=== PATIENT | female | born 1945 | race Caucasian/White ===

== ENCOUNTER 2017-08-20 18:03 | Emergency (ER) | payer OTHER ==
[~2017-08-20] VITALS: Ht 162.6 cm; Wt 51.3 kg
[2017-08-20] MEDS ORDERED: HYDR1TAB94 PO (19:48)
[2017-08-20] MEDS ORDERED: IBUP400 PO (19:49)
== END 2017-08-20 20:45 | disposition home or self-care (01) ==
LOC: ER 18:03
DX: S32.019A Unspecified fracture of first lumbar vertebra, initial encounter for closed fracture (principal); Z88.2 Allergy status to sulfonamides; W22.8XXA Striking against or struck by other objects, initial encounter
CPT/HCPCS: 72100; 72170; 96374; 96375; 96376; 99284; J2405; J3010

== ENCOUNTER 2019-03-09 07:03 | Emergency (ER) | payer MEDICARE ==
[~2019-03-09] VITALS: Ht 167.6 cm; Wt 74.8 kg
[~2019-03-09 07:03] MED LIST: HYDR1TAB94 PO; IBUP400 PO
[2019-03-09] MEDS ORDERED: Roxicodone5 MG PO (08:03)
== END 2019-03-09 08:25 | disposition home or self-care (01) ==
LOC: ER 07:03
DX: S42.211A Unspecified displaced fracture of surgical neck of right humerus, initial encounter for closed fracture (principal); W01.0XXA Fall on same level from slipping, tripping and stumbling without subsequent striking against object, initial encounter
CPT/HCPCS: 73060; 99283-25